=== PATIENT | male | born 1995 | race Caucasian/White ===

== ENCOUNTER 2019-05-20 06:28 | Observation (INO) | payer BC ==
[2019-05-20] MEDS ORDERED: Fentanyl 100 MCG/2 ML VIAL ONE (07:54)
[2019-05-20] MEDS ORDERED: Midazolam HCl 2 mg/2 ml Vial ONE ×2 (07:54→08:47)
[2019-05-20] MEDS ORDERED: PROPOFOL 20 ML ONE (08:47)
[2019-05-20] MEDS ORDERED: Glycopyrrolate 0.2 MG/ML 5 ML SYRINGE ONE (09:11)
[2019-05-20] MEDS ORDERED: HYDROcodone/Acetaminophen 10/325 mg Tablet PO PRN ×2 (10:09)
[2019-05-20] MEDS ORDERED: traMADol HCl 50 MG TAB PO PRN ×2 (10:09)
[2019-05-20] MEDS ORDERED: Ropivacaine 0.2% 550 ML 550 ML NERVE BLCK SCH (10:09)
[2019-05-20] MEDS ORDERED: Promethazine HCl 25 MG/ML VIAL IM PRN ×2 (10:09→10:43)
[2019-05-20] MEDS ORDERED: Ondansetron PF 4 MG/2 ML Vial IVP PRN (10:09)
[2019-05-20] MEDS ORDERED: Zolpidem Tartrate 5 MG TAB PO PRN (10:09)
[2019-05-20] MEDS ORDERED: Fentanyl 100 MCG/2 ML VIAL SLOW IVP PRN (10:09)
[2019-05-20] MEDS ORDERED: Meperidine HCl/PF 25 MG/ML VIAL ONE (10:40)
[2019-05-20] MEDS ORDERED: Promethazine HCl 25 MG/ML VIAL SLOW IVP PRN (10:43)
[2019-05-20] MEDS ORDERED: Meperidine HCl/PF 25 MG/ML VIAL SLOW IVP PRN (10:43)
[2019-05-20] MEDS ORDERED: Ondansetron HCl/PF 4 MG/2 ML Vial IVP PRN (10:43)
[2019-05-20] MEDS ORDERED: Milk Of Magnesia 30 ML UDCUP PO PRN (10:54)
[2019-05-20] MEDS ORDERED: HYDROcodone/Acetaminophen 7.5/325 mg Tablet PO PRN ×2 (10:54)
[2019-05-20] MEDS ORDERED: Morphine 4 MG/ML VIAL SLOW IVP PRN (10:54)
[2019-05-20] MEDS ORDERED: Morphine 2 MG/ML SYRINGE SLOW IVP PRN (10:54)
[2019-05-20] MEDS ORDERED: Bisacodyl 10 MG SUPP PR PRN (10:54)
[2019-05-20] MEDS ORDERED: diphenhydrAMINE 50 MG CAP PO PRN (10:54)
[2019-05-20] MEDS ORDERED: Methocarbamol 500 MG TAB PO PRN (10:54)
[2019-05-20] MEDS ORDERED: Acetaminophen 500 MG TAB PO PRN (10:54)
[2019-05-20] MEDS ORDERED: D5 1/2 NS w/20 mEq KCL 1,000 ML ONE (11:24)
[2019-05-20] MEDS: Ketorolac Tromethamine 30 MG/ML VIAL IVP SCH ×3 (13:01→23:54)
[2019-05-20] MEDS: Dextrose 5 %-0.45 % NaCl 1,000 ML IV SCH ×2 (13:04→22:16)
[2019-05-20] MEDS: CEFAZOLIN 2 GM in Premix Bag 1 BAG IVPB SCH ×2 (15:02→23:54)
--- NOTE | 2019-05-20 16:52 | OP ---
DATE OF PROCEDURE: 05/20/2019 PREOPERATIVE DIAGNOSIS: Left knee failed revision anterior cruciate ligament reconstruction. POSTOPERATIVE DIAGNOSES: 1. Left knee failed revision anterior cruciate ligament reconstruction. 2. Grade 4 lesion, medial femoral condyle that measures as follows- the most anterior portion of the lesion is 1.5 cm from medial to lateral, the most posterior portion of the lesion is 0.5 cm from medial to lateral, the lesion length is 2.5 cm. 3. Large cartilaginous loose body greater than 1 cm. PROCEDURES PERFORMED: 1. Left knee exam under anesthesia. 2. Left knee arthroscopy with arthroscopically assisted anterior cruciate ligament reconstruction using an allograft Achilles tendon. 3. Removal of loose body, greater than 1 cm. BAG MACHINE OPERATOR: Dhruv Jean-Baptiste PA-C. BLOOD LOSS: Minimal. COMPLICATIONS: None. ANESTHESIA: He did have a general anesthetic as well as a preoperative block. IMPLANTS: 7 x 25 metal interference screw on the femur. We used a 9 x 20 [employer] interference screw in tibial tunnel, backed up by a bicortical screw and the soft tissue washer for our final fixation. All those devices are [employer] devices and he did go to recovery in stable condition. INDICATIONS: This is a 23-year-old male, who now works as a data analytics analyst, has had 2 previous ACL reconstructions. Unfortunately, his knee gave way and he had a significant pain and swelling in the knee. An MRI was performed to confirm ACL tear as well as what appeared to be a grade 4 lesion on medial femoral condyle. Options were discussed with the patient and at this time, it was decided to proceed with allograft reconstruction. DESCRIPTION OF PROCEDURE: After all appropriate consent forms were explained and signed, he was taken back to the operative room and at this time was given general anesthetic. Once the level of anesthesia was appropriate, an exam under anesthesia confirmed a positive Gabby exam and at this time, a tourniquet was placed on the left thigh. The leg was then placed in arthroscopic leg yoder and was then prepped and draped in standard surgical fashion. At this time, the limb was exsanguinated and the tourniquet was taken to 300 mmHg. Inferolateral portal was established , and the scope was placed into the knee joint. A needle localization technique was then used to make a medial working portal. Diagnostic arthroscopy commenced in the notch. There was no ACL left. There were some small osteophytes noted. These were taken down off the tibia. The PCL had some synovial overgrowth, and this was also debrided to debulk the PCL because it was taken up space in the notch. We took it down to normal fibers and that was it. Evaluation of the medial compartment showed the patient to have a large grade 4 lesion on his femur. There were some unstable chondral flaps. These were debrided. There were some small pieces of cartilage floating. These were sucked into the shaver device. Once we got good richard, this was measured. The most posterior aspect was found to be 5 mm wide. The most anterior aspect was found to be 15 mm wide and the length of the lesion was 2.5 cm. This was left alone as was felt to be too bigger lesion to try and do drill holes and the patient did not want at this time to have any type of cartilage reconstruction secondary to having to be on crutches for prolonged period of time. The medial meniscus was noted to have had a significant partial medial meniscectomy. There were no new tears noted. We went to the medial gutter and there, we found a large piece of cartilage that was greater than a centimeter and this was removed with a grasper. Once this was done, we evaluated patellofemoral joint and was found to be in good condition. Lateral gutters were clear and the lateral compartment was found to be intact with what appeared to be some scar tissue in the lateral meniscus. On the periphery, it was probed. It was felt to be intact, but this was from the previous repair that was done years ago. Again, no new tearing was noted. There was no significant cartilage deformity on the lateral side either. At this time, a significant notchplasty was performed to open up the notch, so there would be no impingement on the PCL. This was done with a mary and a shaver. Once we had good visualization of our entire femur, we were able to reach around the back. We had good bony bridge posteriorly and there was no obvious large cystic hole from the previous femoral tunnels, but it was felt the femoral tunnel was a little bit more in a vertical position than what a light. Once this was done, the tibial side was cleaned off any soft tissue and at this time, we went about doing our reconstruction. The graft had been thawed and prepared on the back table. The bone plug was 20 mm in length and a size 10 in diameter; therefore, we took our [id number] guide, flexing the knee up. We placed the guide through the medial portal and placed the guide pin up and out the anterolateral thigh. We first reamed with a 7 mm reamer to a depth of 30, followed by the 10 mm reamer to a depth of 30, making sure that when we went through hard previously used bone, we had a nice tunnel. At this time, all loose bony and cartilage debris were removed from the knee joint with the suction shaver device. Our dilator was then used to compact our tunnel. Again, this was felt to be a very nice tunnel with a nice posterior wall and no compromise whatsoever. Tibial guide was then placed into the knee at 55 degrees. Pin was placed into the knee joint. The 10-mm reamer was then used to ream our tibial tunnel. Again, all edges were smoothed off with a rasp and a mary, and any soft tissue and loose bone were removed from the knee joint at this time. Once this was done, we went dry. We flexed the knee up again. We placed a pin up and out the anterolateral thigh using this to pull our passing suture into the knee joint. This was pulled down the tibial tunnel and used to pull our graft up into the knee. We had nice snug graft in our 10 mm hole and fixated with a 7 x 25 metal interference screw. This gave us excellent fixation. We then took the knee through full range of motion, making sure that the ACL was not impinged on the PCL or the femur. Once this was done, we removed the scope. We then went down to our tibial tunnel. We then placed our guide pin and placed our 9 x 20 Bio[employer] interference screw up into the tibial tunnel and once this was done, we dissected the camera back in to make sure that no screw was visible. We then drilled and tapped a bicortical tunnel. We then placed a bicortical screw with a soft tissue washer, compressing the Achilles tendon to the tibia as backup fixation. Once this was done, our scope was placed into the knee, one last time going through full range of motion, making sure we had no impingement and full range of motion. Once this was done, camera was removed. Knee was drained. Excess tendon was removed and at this time, deep Vicryl, 2-0 Vicryl, and nylon sutures were then used to close the skin. Nylon sutures were then used to close our portals. A bulky sterile dressing was applied. Tourniquet was let down. Toes pinked up nicely. The patient was awaken and taken to recovery room in stable condition. All counts were correct at the end of the case and he did receive preoperative IV antibiotics. Job ID: [id number] MTDD
[2019-05-20] MEDS: Famotidine 20 MG TAB PO SCH (20:26)
[2019-05-20] MEDS: Vancomycin HCl 1 GM in Premix Bag 1 BAG IVPB SCH (22:13)
[2019-05-21] MEDS: Ketorolac Tromethamine 30 MG/ML VIAL IVP SCH ×2 (06:14→12:00)
[2019-05-21] MEDS: Famotidine 20 MG TAB PO SCH (08:41)
[2019-05-21] MEDS: Dextrose 5 %-0.45 % NaCl 1,000 ML IV SCH (08:43)
[2019-05-21] MEDS ORDERED: FLU VACC QS2019-20(6MOS UP)/PF 60 MCG/0.5 ML SYRINGE IM ONE (09:00)
[2019-05-21] MEDS: Vancomycin HCl 1 GM in Premix Bag 1 BAG IVPB SCH (09:37)
[2019-05-21 11:52] VITALS: TEMP 98.2
[2019-05-21 13:56] VITALS: BP 109/71
--- NOTE | 2019-05-21 15:59 | DIS ---
DATE OF ADMISSION: 05/20/2019 DATE OF DISCHARGE: 05/21/2019 ADMITTING DIAGNOSES: Failed left knee anterior cruciate ligament reconstruction and left knee medial femoral condyle osteochondral defect. DISCHARGE DIAGNOSES: Failed left knee anterior cruciate ligament reconstruction and left knee medial femoral condyle osteochondral defect. PROCEDURE PERFORMED: Revision of anterior cruciate ligament reconstruction utilizing allograft. CONSULTANTS: [facility]. BRIEF CLINICAL HISTORY: Krishna is a 23-year-old male, who was admitted to [facility], who underwent the above elective procedure on date of admission without intra, uriel, or postop complication. His hospital course was unremarkable. At the time of discharge, the patient is afebrile. He is ambulatory in a nonweightbearing fashion with crutches, tolerating regular diet and voiding without difficulty. His incision is clean and closed without any erythema. DISCHARGE MEDICATIONS: Include [place] for pain. We will be happy to see the patient on an as-needed basis between now and his next scheduled appointment. CONDITION ON DISCHARGE: Stable. PROGNOSIS: Good. Job ID: [id number]
== END 2019-05-21 13:11 | disposition home or self-care (01) ==
LOC: SDC 06:28 → SURG A 10:54
PROVIDERS: ADMIT Orthopaedic Surgery; ATTEND Orthopaedic Surgery
PROC: 0MRP47Z Replacement of Left Knee Bursa and Ligament with Autologous Tissue Substitute, Percutaneous Endoscopic Approach (ICD-10-PCS; principal; 2019-05-20)
PROC: 0SCD4ZZ Extirpation of Matter from Left Knee Joint, Percutaneous Endoscopic Approach (ICD-10-PCS; 2019-05-20)
DX: M23.92 Unspecified internal derangement of left knee (principal); M23.42 Loose body in knee, left knee; G47.33 Obstructive sleep apnea (adult) (pediatric); W11.XXXA Fall on and from ladder, initial encounter; Y99.0 Civilian activity done for income or pay
CPT/HCPCS: 90471; 90686; 96361; 96365; 96366; 96367; 96375; 96376; A4306; C1713; G0008; G0378; J0690; J1885; J2175; J2250; J2704; J2795; J3010; J3370